=== PATIENT | male | born 1950 | race Caucasian/White ===

== ENCOUNTER 2023-07-07 06:06 | Inpatient (IN) ==
[2023-06-20 15:10] LABS: Basophils # (Auto) 0.04 K/mcL (0.00-0.30); Basophils % (Auto) 0.7 % (0.0-2.0); Eosinophils # (Auto) 0.07 K/mcL (0.00-0.70); Eosinophils % (Auto) 1.1 % (0.0-7.0); Hematocrit 48.2 % (40.1-51.0); Hemoglobin 15.9 g/dL (13.7-17.5); Lymphocytes # (Auto) 2.07 K/mcL (1.50-4.80); Lymphocytes % (Auto) 33.9 % (15.5-49.0); Mean Cell Volume 92.2 fL (80.0-100.0); Monocytes # (Auto) 0.59 K/mcL (0.10-0.90); Monocytes % (Auto) 9.7 % (1.0-12.0); Neutrophils % (Auto) 54.4 % (38.0-78.0); Platelet Count 169 K/mcL (140-440); RBC 5.23 M/mcL (4.63-6.08); Red Cell Distribution Width 12.5 % (11.5-14.5); WBC 6.1 K/mcL (4.5-11.0)
[2023-06-20 15:33] LABS: INR 1.1 (0.9-1.1); Prothrombin Time 14.2 sec (11.9-14.5)
[2023-06-20 15:35] LABS: ALT/SGPT 87 U/L (<40); AST/SGOT 63 U/L (<40); Albumin 4.5 gm/dL (3.2-5.2); Albumin/Globulin Ratio 1.4 (1.0-2.3); Alkaline Phosphatase 70 U/L (39-117); Bilirubin,Total 0.5 mg/dL (0.1-1.0); Blood Urea Nitrogen 16 mg/dL (8-23); Calcium 10.5 mg/dL (8.6-10.4); Carbon Dioxide 25 mmol/L (22-30); Chloride 102 mmol/L (96-108); Globulin 3.2 gm/dL (2.2-3.7); Glomerular Filtration Rate 65; Glucose 111 mg/dL (70-105)
[~2023-07-07 06:06] MED LIST: ceFAZolin 2 GM in DEXTROSE 5% IN WATER 50 ML IV SCH
[2023-07-07] MEDS ORDERED: PROPOFOL 200 MG/20 ML VIAL IV ONE (07:06)
[2023-07-07] MEDS ORDERED: fentaNYL 100 MCG/2 ML VIAL ONE ×2 (07:06→08:19)
[2023-07-07] MEDS ORDERED: ONDANSETRON 4 MG/2 ML VIAL ONE (07:06)
[2023-07-07] MEDS ORDERED: ROCURONIUM 10 MG/ML ML IV ONE ×2 (07:06→08:41)
[2023-07-07] MEDS ORDERED: IPRATROPIUM/ALBUTEROL 3 ML AMPUL.NEB NEB PRN (08:09)
[2023-07-07] MEDS ORDERED: FLUMAZENIL 0.1 MG/ML ML IV PRN (08:09)
[2023-07-07] MEDS ORDERED: ONDANSETRON 4 MG/2 ML VIAL IV PRN ×2 (08:09→09:19)
[2023-07-07] MEDS ORDERED: NALOXONE HCL 0.4 MG/ML VIAL IV PRN (08:09)
[2023-07-07] MEDS ORDERED: LACTATED RINGERS 1,000 ML IV SCH (08:15)
[2023-07-07] MEDS ORDERED: GENTAMICIN SULFATE 800 MG/20 ML VIAL IR ONE (08:18)
[2023-07-07] MEDS ORDERED: VANCOMYCIN 1 GM VIAL TOPICAL SCH (08:30)
[2023-07-07] MEDS ORDERED: SUGAMMADEX SODIUM 200 MG/2 ML VIAL IV ONE (09:00)
[2023-07-07] MEDS: fentaNYL 100 MCG/2 ML VIAL IV PRN ×5 (09:24→09:53)
[2023-07-07] MEDS: oxyCODONE IR 5 MG TABLET PO PRN ×4 (10:52→21:40)
[2023-07-07] MEDS: HYDROmorphone 0.5 MG/0.5 ML SYRINGE IV PRN ×2 (12:31→16:00)
[2023-07-07] MEDS: 0.9 % SODIUM CHLORIDE 10 ML SYRINGE IV SCH ×2 (14:55→20:24)
[2023-07-07] MEDS ORDERED: diphenhydrAMINE 25 MG CAPSULE PO ONE (20:05)
[2023-07-07] MEDS ORDERED: diphenhydrAMINE 25 MG CAPSULE ONE (20:21)
[2023-07-08] MEDS: 0.9 % SODIUM CHLORIDE 10 ML SYRINGE IV SCH ×3 (04:08→21:20)
[2023-07-08] MEDS: amLODIPine 10 MG TABLET PO SCH (08:12)
[2023-07-08] MEDS: LISINOPRIL 20 MG TABLET PO SCH (08:12)
[2023-07-08] MEDS: DONEPEZIL 10 MG TABLET PO SCH (08:12)
[2023-07-08] MEDS: HYDROCHLOROTHIAZIDE 25 MG TABLET PO SCH (08:12)
[2023-07-08] MEDS: OMEPRAZOLE 20 MG CAPSULE PO SCH (08:13)
[2023-07-08] MEDS: PANTOPRAZOLE 40 MG TABLET PO SCH (08:13)
[2023-07-08] MEDS ORDERED: NON FORMULARY MEDICATION 1 DOSE MISCELL (Lisinopril-Hydrochlorothiazide 20-25 mg tablet) PO SCH (09:00)
[2023-07-08] MEDS ORDERED: PNEUMOCOCCAL 23-VAL P-SAC VAC 0.5 ML SYRINGE IM ONE (10:00)
[2023-07-08] MEDS ORDERED: FLUZONE HD QS2023-24/PF 240 MCG/0.7 ML SYRINGE IM ONE (10:15)
[2023-07-08] MEDS: oxyCODONE IR 5 MG TABLET PO PRN ×2 (13:39→19:11)
[2023-07-08] MEDS ORDERED: HALOPERIDOL LACTATE 5 MG/ML VIAL IM PRN (19:16)
[2023-07-08] MEDS: diphenhydrAMINE 25 MG CAPSULE PO PRN (19:22)
[2023-07-08] MEDS ORDERED: HALOPERIDOL LACTATE 5 MG/ML VIAL ONE (22:06)
[2023-07-09] MEDS: 0.9 % SODIUM CHLORIDE 10 ML SYRINGE IV SCH ×3 (05:09→22:01)
[2023-07-09] MEDS: LISINOPRIL 20 MG TABLET PO SCH (08:02)
[2023-07-09] MEDS: OMEPRAZOLE 20 MG CAPSULE PO SCH (08:02)
[2023-07-09] MEDS: amLODIPine 10 MG TABLET PO SCH (08:02)
[2023-07-09] MEDS: DONEPEZIL 10 MG TABLET PO SCH (08:02)
[2023-07-09] MEDS: HYDROCHLOROTHIAZIDE 25 MG TABLET PO SCH (08:02)
[2023-07-09] MEDS: oxyCODONE IR 5 MG TABLET PO PRN ×2 (08:03→19:15)
[2023-07-09] MEDS: PANTOPRAZOLE 40 MG TABLET PO SCH (08:04)
[2023-07-09] MEDS: diphenhydrAMINE 25 MG CAPSULE PO PRN (19:16)
[2023-07-09] MEDS: HALOPERIDOL LACTATE 5 MG/ML VIAL IM PRN (19:26)
[2023-07-10] MEDS: 0.9 % SODIUM CHLORIDE 10 ML SYRINGE IV SCH ×3 (04:56→22:12)
[2023-07-10] MEDS: DONEPEZIL 10 MG TABLET PO SCH (09:02)
[2023-07-10] MEDS: OMEPRAZOLE 20 MG CAPSULE PO SCH (09:02)
[2023-07-10] MEDS: LISINOPRIL 20 MG TABLET PO SCH (09:02)
[2023-07-10] MEDS: amLODIPine 10 MG TABLET PO SCH (09:02)
[2023-07-10] MEDS: HYDROCHLOROTHIAZIDE 25 MG TABLET PO SCH (09:02)
[2023-07-10] MEDS: oxyCODONE IR 5 MG TABLET PO PRN ×3 (09:49→23:20)
[2023-07-10] MEDS: HALOPERIDOL LACTATE 5 MG/ML VIAL IM PRN (19:27)
[2023-07-10] MEDS: diphenhydrAMINE 25 MG CAPSULE PO PRN (19:28)
[2023-07-10] MEDS ORDERED: HALOPERIDOL LACTATE 5 MG/ML VIAL IM ONE (20:47)
[2023-07-10] MEDS ORDERED: diphenhydrAMINE (PP) 25MG TABLET (#24) PO ONE (20:48)
[2023-07-10] MEDS ORDERED: HALOPERIDOL LACTATE 5 MG/ML VIAL IM PRN (22:20)
[2023-07-10] MEDS ORDERED: diphenhydrAMINE 25 MG CAPSULE PO PRN ×2 (22:21→22:23)
[2023-07-10] MEDS ORDERED: diphenhydrAMINE 50 MG/ML VIAL IM PRN (22:24)
[2023-07-10] MEDS ORDERED: HALOPERIDOL 5 MG TABLET PO PRN (22:30)
[2023-07-11] MEDS: 0.9 % SODIUM CHLORIDE 10 ML SYRINGE IV SCH (05:10)
[2023-07-11] MEDS ORDERED: HALOPERIDOL 5 MG TABLET PO PRN (05:29)
[2023-07-11] MEDS: HYDROCHLOROTHIAZIDE 25 MG TABLET PO SCH (09:02)
[2023-07-11] MEDS: OMEPRAZOLE 20 MG CAPSULE PO SCH (09:02)
[2023-07-11] MEDS: LISINOPRIL 20 MG TABLET PO SCH (09:02)
[2023-07-11] MEDS: DONEPEZIL 10 MG TABLET PO SCH (09:02)
[2023-07-11] MEDS: amLODIPine 10 MG TABLET PO SCH (09:03)
[2023-07-11] MEDS ORDERED: OLANZapine 2.5 MG TABLET PO PRN (10:03)
[2023-07-11] MEDS: oxyCODONE IR 5 MG TABLET PO PRN ×3 (12:44→20:30)
[2023-07-11] MEDS: OLANZapine 2.5 MG TABLET PO SCH ×2 (14:00→20:31)
[2023-07-12] MEDS: oxyCODONE IR 5 MG TABLET PO PRN ×3 (05:42→23:44)
[2023-07-12] MEDS: HYDROCHLOROTHIAZIDE 25 MG TABLET PO SCH (10:31)
[2023-07-12] MEDS: DONEPEZIL 10 MG TABLET PO SCH (10:31)
[2023-07-12] MEDS: LISINOPRIL 20 MG TABLET PO SCH (10:31)
[2023-07-12] MEDS: OMEPRAZOLE 20 MG CAPSULE PO SCH (10:31)
[2023-07-12] MEDS: amLODIPine 10 MG TABLET PO SCH (10:31)
[2023-07-12] MEDS: OLANZapine 2.5 MG TABLET PO SCH ×2 (13:22→19:46)
[2023-07-13] MEDS: oxyCODONE IR 5 MG TABLET PO PRN (04:09)
[2023-07-13] MEDS: OMEPRAZOLE 20 MG CAPSULE PO SCH (08:35)
[2023-07-13] MEDS: amLODIPine 10 MG TABLET PO SCH (09:46)
[2023-07-13] MEDS: LISINOPRIL 20 MG TABLET PO SCH (09:47)
[2023-07-13] MEDS: HYDROCHLOROTHIAZIDE 25 MG TABLET PO SCH (09:47)
[2023-07-13] MEDS: DONEPEZIL 10 MG TABLET PO SCH (09:47)
[2023-07-13] MEDS: OLANZapine 2.5 MG TABLET PO SCH (13:03)
== END 2023-07-13 14:10 ==
LOC: SUR 06:06 → MEDSUR 09:19
PROVIDERS: ADMIT Family Medicine Adult Medicine; ATTEND Family Medicine Adult Medicine